=== PATIENT | female | born 1950 | race African-American/Black ===

== ENCOUNTER 2018-06-02 07:50 | Day surgery (SDC) | payer MEDICARE, OTHER ==
[2015-06-02 08:51] VITALS: BP 110/62
[2018-06-02] MEDS ORDERED: LACTATED RINGERS 1,000 ML IV.SOLN IV ONE (08:30)
[2018-06-02] MEDS ORDERED: PROPOFOL 500 MG/50 ML VIAL IV ONE (08:30)
[2018-06-02] MEDS ORDERED: LIDOCAINE HCL/PF 2% 100 MG/5 ML VIAL IJ ONE (08:30)
--- NOTE | 2018-06-03 10:55 | GI Report ---
REFERRING PHYSICIAN: Dr. Sandra Madera [place] AUDITOR: Sudhir Pathak MD PROCEDURE MEDICATION: Propofol as per anesthesia. INDICATIONS: Patient is a 68-year-old woman who has had polyps in the past. Her mother of colon cancer at 55. Her last colonoscopy was 3 years ago. She denies any change in stool since that time. She had an area previously tattooed at [facility] at the site of a large polyp in the transverse colon removed. PROCEDURE PERFORMED: Colonoscopy. PROCEDURE: An Olympus video colonoscope was advanced to the rectum. The colonoscope was slowly advanced all the way to the cecum. The appendiceal orifice and terminal ileum were inspected and were normal. On slow withdrawal, the cecum and ascending colon with no obvious intraluminal lesions noted. In the proximal transverse colon, you could see the tattoo site near the hepatic flexure. We photographed it and looked at it several times in different positions. I do not see any residual lesion there. On continuing slow withdrawal, the main part of the transverse colon looked normal. The descending colon and sigmoid, a few small diverticula with some redundancy but no obvious intraluminal lesions noted. Retroflexion of the rectum was normal. Patient tolerated the procedure well. FINDINGS: 1. Normal-appearing mucosa through the colon. 2. Site of previous polyp tattooed, I see no residual polyp. 3. Family history of colorectal cancer in her mother. RECOMMENDATIONS: 1. A high-fiber diet. 2. I would recommend re-looking at her colon in 5 years because she is a high risk with first-degree relative. cc: Dr. Sandra Madera, [facility]
== END 2018-06-02 07:52 ==
LOC: OPSURG 07:50
PROVIDERS: ATTEND Internal Medicine Gastroenterology
DX: Z86.010 Personal history of colon polyps (principal); Z80.0 Family history of malignant neoplasm of digestive organs
CPT/HCPCS: J2001; J2704; J7120; 45378; S1016